=== PATIENT | male | born 1980 | race Two or more races ===

== ENCOUNTER 2024-10-15 18:37 | Emergency (ER) | payer MEDICAID, SELFPAY ==
--- NOTE | 2024-10-15 18:47 | EKG_ITS ---
[facility] Test Date: 2024-10-15 Pat Name: KIRSTEN LAWRENCE Department: Room: - Gender: Male Sales Clerk: : 1980 Requested By: Catracho Atwood Order Number: [id number] Reading MD: Catracho Atwood Measurements Intervals [place] Rate: 77 P: 72 [place]: 186 QRS: 68 QRSD: 81 T: 20 QT: 311 QTc: 352 Interpretive Statements SINUS RHYTHM No previous ECG available for comparison /store/S0/[id number].pdf
[2024-10-15 18:52] VITALS: PULSE 93; RESP 22; O2SAT 95
[2024-10-15 19:27] VITALS: BP 137/72; PULSE 79; RESP 20; TEMP 37.5; O2SAT 97
--- NOTE | 2024-10-15 19:43 | XR_ITS ---
Examination: AP chest single view Technique: AP chest single view Exam date and time: October 15, 2024 1752 hrs. Indications: Coughing beginning 3 days ago. Findings: Normal heart size. Lungs are clear. The osseous structures are intact Impression: No active disease
--- NOTE | 2024-10-15 19:44 | PD.EDRME ---
Rapid Medical Screening Exam [facility] Arrival date/time: 10/15/24 18:37 44M with no significant PMH presents to ED with several days of cough and SOB. Patient with no significant past medical history. Shortness of breath x 2 days. Productive cough runny nose. No other sick contacts. Smoker 1 pack/day. Patient reports that the cough makes the shortness of breath worse. Any complaining of generalized bodyaches, general I discomfort. Time Seen by Provider: 10/15/24 19:36 Vital signs: Vital Signs Temperature 99.5 F 10/15/24 19:27 Pulse Rate 79 10/15/24 19:27 Respiratory Rate 20 10/15/24 19:27 Blood Pressure 137/72 H 10/15/24 19:27 Pulse Oximetry (%) 97 10/15/24 19:27 Oxygen Delivery Method Nasal Cannula 10/15/24 19:27 Oxygen Flow Rate 3 10/15/24 19:27
[2024-10-15 19:57] LABS: Lactate (Lactic Acid) 1.2 mMol/L (0.4-2.0)
[2024-10-15 19:59] LABS: Basophils % (Auto) 0 % (0-2.5); Eosinophils # (Auto) 0.2 Thou/mm3 (0.0-0.5); Eosinophils % (Auto) 2 % (0-10); Hematocrit 42.5 % (41.0-53.0); Immature Granulocytes % (Auto) 0 % (0-0); Immature Granulocytes Auto 0.03 Thou/mm3 (0.00-0.00); Lymphocytes # (Auto) 1.5 Thou/mm3 (1.0-4.8); Lymphocytes % (Auto) 14 % (10-50); Mean Corpuscular HGB Conc 35.3 g/dl (31.0-37.0); Mean Corpuscular Hemoglobin 31.3 pg (25.0-35.0); Mean Corpuscular Volume 89 fL (80-100); Monocytes # (Auto) 1.1 Thou/mm3 (0.0-0.8); Monocytes % (Auto) 10 % (0-12); Neutrophils # (Auto) 7.9 Thou/mm3 (1.8-7.7); Neutrophils % (Auto) 74 % (37-80); Nucleated Red Blood Cell % 0 /100 WBC (0); Platelet Count 201 Thou/mm3 (140-440); RDW Standard Deviation 42.3 fL (35.1-43.9); White Blood Count 10.7 Thou/mm3 (3.8-10.6)
[2024-10-15] MEDS: ALBUTEROL/IPRATROPIUM (Duoneb) RT SOL 3 ML NEBU INH (20:01)
[2024-10-15 20:14] VITALS: PULSE 81; RESP 20; O2SAT 97
[2024-10-15 20:32] LABS: Alanine Aminotransferase 32 U/L (10-49); Albumin, Serum 4.3 gm/dL (3.5-5.0); Albumin/Globulin Ratio 1.6 (1.2-2.2); Alkaline Phosphatase 100 U/L (46-116); Anion Gap 9 (7-16); Aspartate Amino Transferase 39 U/L (0-34); BUN/Creatinine Ratio 11 Ratio (12-20); Bilirubin,Total 0.4 mg/dL (0.3-1.2); Blood Urea Nitrogen 10 mg/dL (9-23); Calcium 9.2 mg/dL (8.3-10.6); Calcium (Corrected) 9.2 mg/dL (8.5-10.1); Carbon Dioxide 21.4 mMol/L (20.0-31.0); Chloride 105 mMol/L (98-107); Creatinine (Component) 0.9 mg/dL (0.6-1.3); Globulin 2.7 gm/dL (2.3-3.5); Glucose 110 mg/dL (74-106); Osmolality,Calculated 270 (275-295); Potassium 3.9 mMol/L (3.4-5.1); Sodium 135 mMol/L (136-145); Troponin I < 0.020 ng/mL (0.0-0.045); eGFR > 60 See Note
--- NOTE | 2024-10-15 20:51 | XR_ITS ---
Examination: CTA chest with intravenous contrast 2-D reconstructions 3-D reconstructions, vascular Date and time of exam: October 15, 2024 1106 hrs. Indications: Onset chest pain coughing beginning 2 days ago CTDI: vol (mGy) 11.3 DLP: (mGycm) 511 Technique: Multiple axial sections of the thorax have been obtained. 3 mm slice thickness, from below the hemidiaphragms to above the apices of the lungs. Mediastinal and lung density settings have been obtained. 2-D sagittal and coronal reconstructions. 3-D angiographic renderings, 3-D volume renderings, 3D post processing, vascular maximum intensity projections obtained. Contrast administered is 100 cc Isovue-370. Low dose protocols were performed. One or more of the following dose reduction techniques were used; automated exposure control, adjustment of the mA and/or KV according to patient size, use of iterative reconstruction technique. Findings: No thoracic aortic aneurysm dilatation or dissection Pulmonary artery segments are not enlarged No pulmonary artery emboli 5 mm pulmonary nodule right middle lobe image 153 No lobar pneumonia or pulmonary edema No visualized liver or splenic lesion No gallstones No pancreatic mass No renal or ureteral calculi, no hydronephrosis Abdominal aorta normal size Impression: Negative for pulmonary artery emboli No pneumonia or pulmonary edema 5 mm pulmonary nodule right middle lobe, with this study as baseline recommend 6 month follow-up CT chest without contrast
--- NOTE | 2024-10-15 21:04 | EDNOTE_ITS ---
ED SOB =RME/HPI General Chief Complaint: Shortness of Breath/Dyspnea Stated Complaint: SOB Time Seen by Provider: 10/15/24 19:36 Arrival date/time: 10/15/24 18:37 RME / HPI RME / HPI Narrative: 10/15/24 18:37 44M with no significant PMH presents to ED with several days of cough and SOB. DR. LUNA MAIN ED EVALUATION: 44 year old male with no significant past medical history presents to the Emergency Department with complaint of shortness of breath x 2 days. Associated symptoms include a productive cough and a runny nose. No other sick contacts. Tobacco smoker, smokes 1 pack/day. Patient reports that the cough makes the shortness of breath worse. Patient also complaining of generalized bodyaches and general discomfort. Related Data Previous Rx's ?Medication ?Instructions ?Recorded albuterol sulfate 90 mcg/actuation 2 puff inhalation Q6H PRN cough 5 10/16/24 aerosol inhaler days #8.5 grams benzonatate 200 mg capsule 200 mg PO TID PRN cough #10 caps 10/16/24 dextromethorphan HBr 10 mg/5 mL 15 mg (7.5 mL) PO Q4H PRN cough 7 10/16/24 oral liquid days #118 mL Allergies Allergy/AdvReac Type Severity Reaction Status Date / Time No Known Allergies Allergy Verified 10/15/24 18:55 Review of Systems Review of Systems Systems Reviewed: All systems reviewed, normal except as documented Narrative Review of Systems: GEN: No fever, no chills, no weight loss, + generalized bodyaches/ general discomfort. EYES: No discharge, no visual changes, no pain HEENT: No ear pain, + runny nose/ congestion, no sore throat PULM: + shortness of breath, + cough, + congestion CV: No chest pain, no dyspnea on exertion, no palpitations GI: No nausea, no vomiting, no diarrhea, no pain, no constipation : No frequency, no urgency and no dysuria MUSC/SKEL: No back pain SKIN: No rash PSYCH: No hallucinations, no depression HEME/LYMPH: No easy bleeding or bruising tendencies NEURO: No weakness, no headache Past Medical History Past Medical History CARDIAC: Negative Cardiac Disorders RESPIRATORY: Negative Asthma GENITOURINARY: Negative Renal Disease ENDOCRINE: Negative Diabetes Mellitus Type 2 HEMATOLOGIC: Negative Sickle Cell Disease Social History SMOKING STATUS: Never smoker SUBSTANCE USE: does not use ALCOHOL: Never ED Exam Narrative Physical exam: Patient coughing green sputum General General appearance: Present alert and in no apparent distress Head Head exam: Present atraumatic Eye Eye exam: Present normal appearance and EOMI ENT ENT exam: Present normal exam, normal oropharynx and mucous membranes moist Chest Chest inspection: Present normal inspection and symmetric chest wall rise; Absent tenderness or rash Respiratory Respiratory exam: Present normal lung sounds bilaterally, wheezes and accessory muscle use; Absent respiratory distress, stridor or prolonged expiratory phase Abdominal Exam Abdominal exam: Present soft and normal bowel sounds Extremities Exam Extremities exam: Present normal inspection and full ROM Back Exam Back exam: Present normal inspection and full ROM Neurological Exam Neurological exam: Present alert, oriented X3 and CN II-XII intact Psychiatric Psychiatric exam: Present normal affect and normal mood Skin Skin exam: Present warm, dry, intact and normal color Course Quality Measures none Orders Category Date Time Status Bedside Influenza A&B Antigen Test NOW Care 10/15/24 19:[address] Screening NOW Care 10/15/24 20:52 Completed EKG (ED ONLY) *Do not use* NOW Care 10/15/24 18:47 Completed Insert IV NOW Care 10/15/24 21:[address] angio chest Stat Exams 10/15/24 20:51 Completed EKG (ED Only) Stat Exams 10/15/24 18:47 Draft XR chest 1V portable Stat Exams 10/15/24 19:43 Completed CBC Stat Lab 10/15/24 19:52 Completed Comprehensive Metabolic Panel Stat Lab 10/15/24 19:52 Completed Lactate (Lactic Acid) Stat Lab 10/15/24 19:52 Completed Procalcitonin Stat Lab 10/15/24 19:52 Completed Troponin I Stat Lab 10/15/24 19:52 Completed Albuterol/Ipratr Rt Amena [Duoneb Rt Amena] Med 10/15/24 19:43 Discontinued 3 ml INH X1 ONE Benzonatate [Tessalon] Med 10/16/24 01:34 Discontinued 200 mg PO X1 ONE HYDROcodone/APAP 10/325 [[place] 10/325] Med 10/15/24 20:52 Discontinued 1 tab PO X1 ONE Vital Signs Vital signs: Vital Signs Temperature 99.5 F 10/15/24 19:27 Pulse Rate 79 10/15/24 19:27 Respiratory Rate 20 10/15/24 19:27 Blood Pressure 137/72 H 10/15/24 19:27 Pulse Oximetry (%) 97 10/15/24 19:27 Oxygen Delivery Method Nasal Cannula 10/15/24 19:27 Oxygen Flow Rate 3 10/15/24 19:27 Shortness of Breath / Dyspnea MDM Narrative MDM Narrative:: I, Trena Todd, am scribing for and in the presence of Dr. Luna. Patient data External records reviewed:: None (no previous) Clinical information provided by:: patient Social determinants that could affect healthcare access:: other (specify) (Tobacco smoker, smokes 1 pack/day.) Patient has the following chronic illnesses:: Denies any PMHx, surgeries, daily medications, or known allergies. How is presenting disease/condition affected by chronic disease/condition?: no chronic disease Evaluation data The following diagnostics were reviewed and interpreted by me:: lab results, radiology exam(s) and EKG tracing(s) (done at 1934, NSR, rate of 77, normal intervals, normal axis, no acute ST or T-wave changes, no STEMI, according to my interpretation.) Lab and/or radiology exams considered but not ordered:: none Interpretation Summary: Procedure(s): XR chest 1V portable Accession Number(s): [id number] cc: Nahid Fofana MD; Taz Villalobos MD; Catracho Atwood PA-C~ Examination: AP chest single view Technique: AP chest single view Exam date and time: October 15, 2024 1752 hrs. Indications: Coughing beginning 3 days ago. Findings: Normal heart size. Lungs are clear. The osseous structures are intact Impression: No active disease Dictated By: Taz Villalobos MD --------- [facility] Report Signed Patient: KIRSTEN LAWRENCE Record#: [id number] Birthdate: 1980 Age/Sex: 44 / M Location: [facility] [place] Attending Dr: Ordering Physician: Keysha Luna MD Date of Service: 10/15/24 Procedure(s): CT angio chest Accession Number(s): [id number] cc: Nahid Fofana MD; Taz Villalobos MD; Keysha Luna MD~ Examination: CTA chest with intravenous contrast 2-D reconstructions 3-D reconstructions, vascular Date and time of exam: October 15, 2024 1106 hrs. Indications: Onset chest pain coughing beginning 2 days ago CTDI: vol (mGy) 11.3 DLP: (mGycm) 511 Technique: Multiple axial sections of the thorax have been obtained. 3 mm slice thickness, from below the hemidiaphragms to above the apices of the lungs. Mediastinal and lung density settings have been obtained. 2-D sagittal and coronal reconstructions. 3-D angiographic renderings, 3-D volume renderings, 3D post processing, vascular maximum intensity projections obtained. Contrast administered is 100 cc Isovue-370. Low dose protocols were performed. One or more of the following dose reduction techniques were used; automated exposure control, adjustment of the mA and/or KV according to patient size, use of iterative reconstruction technique. Findings: No thoracic aortic aneurysm dilatation or dissection Pulmonary artery segments are not enlarged No pulmonary artery emboli 5 mm pulmonary nodule right middle lobe image 153 No lobar pneumonia or pulmonary edema No visualized liver or splenic lesion No gallstones No pancreatic mass No renal or ureteral calculi, no hydronephrosis Abdominal aorta normal size Impression: Negative for pulmonary artery emboli No pneumonia or pulmonary edema 5 mm pulmonary nodule right middle lobe, with this study as baseline recommend 6 month follow-up CT chest without contrast Dictated By: Taz Villalobos MD Signed By: <Electronically signed by Taz Villalobos MD in [place]> 10/16/24 0001 Medications / Prescriptions Medications or Prescriptions considered but not ordered:: none Medication administrations:: Medication Administration History Discontinued Medications Hydrocodone Bitart/Acetaminophen (Hydrocodone/Apap 10/325 Tab) 1 tab PO X1 ONE Stop: 10/15/24 20:53 Last Admin: 10/15/24 21:21 Dose: 1 tab Documented By: RC Albuterol/Ipratropium (Albuterol/Ipratropium (Duoneb) Rt Amena 3 Ml Nebu) 3 ml INH X1 ONE Stop: 10/15/24 19:44 Last Admin: 10/15/24 20:01 Dose: 3 ml Documented By: GB Benzonatate (Benzonatate 100 Mg Capsule) 200 mg PO X1 ONE; Protocol Stop: 10/16/24 01:35 Last Admin: 10/16/24 02:12 Dose: 200 mg Documented By: VANESSA(2) see above Consultations Consultation(s) initiated? (list below): No Diagnosis Shortness of Breath Differential Diagnosis: other (pulmonary embolism, pneumonia, influenza, COPD, viral syndrome) Most likely diagnosis given after review of the tests above:: see below Admission Indicated Admission indicated?: not indicated Admission Request Was there a request for admission?: No Disposition Plan Disposition Plan: Discharge Discharge Attestation Discharge Attestation: The patient and all family members were given an opportunity to ask questions and understood the discharge instructions. Discharge instructions specifically effects, indications for sooner follow up or return to the emergency department, and the expected course of current diagnosis. Patient condition: Stable Critical Care Time Critical Care Time Critical Care Time: Yes Total Critical Care Time (min.): 35 Attestation: The high probability of sudden, clinically significant deterioration in the patient?s condition required the highest level of my preparedness to intervene urgently. The services I provided to this patient were to treat and/or prevent clinically significant deterioration. Services included the following: chart data review, reviewing nursing notes and/or old charts, documentation time, staff consultant collaboration regarding findings and treatment options, medication orders and management, direct patient care, vital sign assessments and ordering, interpreting and reviewing diagnostic studies and lab tests. Aggregate critical care time includes only time during which I was engaged in work directly related to the patient?s care, as described above, whether at bedside or elsewhere in the Emergency Department. It did not include time spent performing other reported procedures or the services of residents, students, nurses or physician assistants. Discharge Plan Plan Patient Disposition: HOME (Self Care) Patient condition on transfer: Stable Prescriptions/Referrals Prescriptions/Med Rec: New benzonatate 200 mg capsule 200 mg PO TID PRN (Reason: cough) Qty: 10 0RF albuterol sulfate 90 mcg/actuation HFA aerosol inhaler 2 puff inhalation Q6H PRN (Reason: cough) 5 Days Qty: 8.5 0RF Rx Instructions: administer with spacer dextromethorphan HBr 10 mg/5 mL liquid 15 mg PO Q4H PRN (Reason: cough) 7 Days Qty: 118 0RF Referrals: Nahid Fofana MD [Primary Care Provider] - In 1 week Problem List Clinical Impression: URI (upper respiratory infection) Patient/Caregiver Discharge Instructions Education Materials: ED URI, Viral, No Abx (Adult) Print Language: Burmese Stand Alone Forms: [employer]ita Award Info., Patient Portal Info Letter
[2024-10-15] MEDS: HYDROcodone/APAP 10/325 TAB PO (21:21)
[2024-10-15 23:56] VITALS: BP 134/72; PULSE 70; RESP 18; TEMP 36.9; O2SAT 95
[2024-10-16 01:59] VITALS: BP 107/55; PULSE 70; RESP 18; O2SAT 96
[2024-10-16] MEDS: BENZONATATE 100 MG CAPSULE 200 MG PO (02:12)
== END 2024-10-16 02:15 | disposition home or self-care (01) ==
PROVIDERS: Physician Assistant; Emergency Provider Emergency Medicine; PCP Family Medicine
DX: J06.9 Acute upper respiratory infection, unspecified (principal); R91.1 Solitary pulmonary nodule; F17.210 Nicotine dependence, cigarettes, uncomplicated
CPT/HCPCS: 36415; 71045; 71275; 80053; 83605; 84145; 84484; 85025; 87400; 93005; 94640; 99291; A4649; A9270; Q9967